=== PATIENT | female | born 1960 | race Caucasian/White ===

== ENCOUNTER → 2019-09-18 | Day surgery (SDC) | payer OTHER ==
[~2019-09-18] MED LIST: ATOR80TA72 PO; CEPH-263 PO; CHOL100013 PO; CYAN-25 PO; HYDR-3164 PO; IV RINGERS,LACTATED 1000ML 1,000 ML IV ONE; PRAV10TA2 PO; PROPOFOL 20 ML IV ONE; SENN1TAB70 PO; SERT100T PO
[2019-09-18 08:14] VITALS: BP 108/65
--- NOTE | 2019-09-18 09:55 | HP ---
ADMIT DATE: 09/18/2019 REFERRING PHYSICIAN: Henny Arreguin M.D. REASON FOR CONSULTATION: History of colonic polyps. HISTORY OF PRESENT ILLNESS: A 59-year-old female with past medical history significant for hyperlipidemia, pernicious anemia as well as colonic polyps and cured hepatitis C with Harvoni treatment, seen for interval colonoscopy. Bowel habits are regular without diarrhea and/or constipation. There is no melena and/or hematochezia. Weight and appetite are stable and there is no family history of colon cancer. She is otherwise without additional complaints. PAST MEDICAL HISTORY: Hyperlipidemia, pernicious anemia, hepatitis C with sustained viral response, status post Harvoni therapy in 2014. ALLERGIES: CODEINE. MEDICATIONS: Include atorvastatin, vitamin D3, vitamin B12, docusate sodium and Zoloft. SOCIAL HISTORY: She is a smoker and social drinker. FAMILY HISTORY: Noncontributory. PAST SURGICAL HISTORY: Tubal ligation and tonsillectomy. REVIEW OF SYSTEMS: Per records. PHYSICAL EXAMINATION: GENERAL: Reveals a well-nourished, well-developed female who is alert, cooperative, in no acute distress. VITAL SIGNS: Temperature 97.3, pulse 59, respirations 20. HEENT: Normocephalic, atraumatic head. Pupils and extraocular muscles are not tested. Sclerae anicteric. NECK: Supple. LUNGS: Clear. CARDIOVASCULAR: Reveals an S1, S2 without S3, S4 or appreciable murmur. ABDOMEN: Reveals a soft abdomen, normal bowel sounds, without appreciable hepatosplenomegaly. EXTREMITIES: Reveals no cyanosis, clubbing, edema. IMPRESSION: History of colonic polyps. Surveillance colonoscopy is recommended at this time. Risks and benefits were discussed with the patient including risk of hemorrhage and perforation during the operation. She is willing to proceed. MARIAA DONATO MD DR: GRETCHEN/jarek JOB#: [id number] / [id number] HENNY Smith MD
== END ==
LOC: ENDOS 06:35
PROVIDERS: ATTEND Internal Medicine Gastroenterology
DX: Z12.11 Encounter for screening for malignant neoplasm of colon (principal); K57.30 Diverticulosis of large intestine without perforation or abscess without bleeding; K64.0 First degree hemorrhoids; F17.210 Nicotine dependence, cigarettes, uncomplicated; E78.5 Hyperlipidemia, unspecified; D64.9 Anemia, unspecified; Z80.0 Family history of malignant neoplasm of digestive organs; Z86.19 Personal history of other infectious and parasitic diseases; Z88.5 Allergy status to narcotic agent; Z98.51 Tubal ligation status; Z98.890 Other specified postprocedural states; Z72.89 Other problems related to lifestyle
CPT/HCPCS: 45378; J2704